=== PATIENT | female | born 1960 ===

== ENCOUNTER 2022-08-26 06:35 | Day surgery (SDC) | payer BC ==
[2022-08-26] MEDS: Ringers Lactate 1,000 ML IV ONE (07:30)
[2022-08-26] MEDS ORDERED: LIDOCAINE 1% MPF 5 ML VIAL ONE (07:52)
[2022-08-26] MEDS ORDERED: propofoL 200 MG/20 ML VIAL IV ONE (07:52)
[2022-08-26] MEDS ORDERED: ONDANSETRON 4 MG/2 ML VIAL ONE (08:19)
--- NOTE | 2022-08-26 08:31 | ENDO RPT ---
[address], [address] COLONOSCOPY PROCEDURE REPORT EXAM DATE: 08/26/2022 PATIENT NAME: Brissa Brock MR #: [id number] BIRTHDATE: 1960 ATTENDING: Jimmy Duff DR STATUS: outpatient [facility] DEVELOPER: Amanda Cardenas RN and Joe Lewis [facility] INDICATIONS: The patient is a 61 yr old Female here for a colonoscopy due to History of colon polyp requiring partial colectomy and colon cancer screening PROCEDURE PERFORMED: Colonoscopy with biopsy - cold polypectomy MEDICATIONS: Per Anesthesia. ESTIMATED BLOOD LOSS: None CONSENT: The patient understands the risks and benefits of the procedure and understands that these risks include, but are not limited to: sedation, allergic reaction, infection, perforation and/or bleeding. Alternative means of evaluation and treatment include, among others: physical exam, x-rays, and/or surgical intervention. The patient elects to proceed with this endoscopic procedure. DESCRIPTION OF PROCEDURE: During intra-op preparation period all mechanical medical equipment was checked for proper function. Hand hygiene and appropriate measures for infection prevention was taken. Procedure, possible complications, alternatives including, but not limited to possibility of bleeding, perforation, tear, infection, sepsis, need for surgery, need for blood transfusion, were explained to the patient. After the risks, benefits and alternatives of the procedure were thoroughly explained, Informed consent was verified, confirmed and timeout was successfully executed by the treatment team. The patient was placed in the left lateral position. A digital rectal exam was performed and revealed external hemorrhoids and A digital rectal exam was performed and revealed internal hemorrhoids. After appropriate level of anesthesia, the scope was passed. The EC-[id number] ([id number]) endoscope was introduced through the anus and advanced to the cecum, which was identified by both the appendix and ileocecal valve. The quality of the prep was fair. The instrument was then slowly withdrawn as the colon was fully examined. Scope withdrawal time was 9 minutes. COLON FINDINGS: Mild diverticulosis was noted in the sigmoid colon. No bleeding was noted from the diverticulosis. A smooth sessile polyp ranging between 3-5mm in size was found in the rectum. A polypectomy was performed with cold forceps. The resection was complete, the polyp tissue was completely retrieved and sent to histology. There was evidence of a prior end-to-side colo-colonic surgical anastomosis in the rectosigmoid colon. Retroflexed views revealed no abnormalities. The scope was then completely withdrawn from the patient and the procedure terminated. ADVERSE EVENTS: There were no complications. IMPRESSIONS: 1. Mild diverticulosis was noted in the sigmoid colon 2. Sessile polyp ranging between 3-5mm in size was found in the rectum; polypectomy was performed with cold forceps 3. There was evidence of a prior colo-colonic surgical anastomosis in the rectosigmoid colon 4. Hemorrhoidal tag 5. External hemorrhoids 6. Internal hemorrhoids RECOMMENDATIONS: 1. avoid NSAIDS for 2 weeks 2. await biopsy results 3. fiber rich diet 4. follow-up: office 2 week(s) 5. Monitor for any evidence of rectal bleeding. 6. yearly hemoccult starting in 4 years 7. yearly hemoquant 8. hemorrhoidal hygiene 9. increase dietary water RECALL: for Colonoscopy, pending biopsy results. Jimmy Duff DR eSigned: Jimmy Duff DR 08/26/2022 8:31 AM cc: CPT CODES: ICD9 CODES: PATIENT NAME: Brissa Brock MR#: [id number]
[2022-08-26 08:35] VITALS: O2SAT 100
[2022-08-26 08:41] VITALS: TEMP 97
[2022-08-26 08:57] VITALS: BP 136/68
--- NOTE | 2022-08-31 14:04 | EKG ---
Test Date: 2022-08-26 Test Time: 06:53:14 Lumber Scaler: FABIANA MEASUREMENT RESULTS: Intervals: Rate: 77 IA: 156 QRSD: 80 QT: 388 QTc: 439 [place]: P: 80 IA: 156 QRS: 42 T: 64 INTERPRETIVE STATEMENTS: Normal sinus rhythm Normal ECG No previous ECG available for comparison Electronically Signed On 08-31-22 14:01:11 MARKING MACHINE TENDER by Mario Stark
== END 2022-08-26 09:08 | disposition home or self-care (01) ==
LOC: OR 06:35
PROVIDERS: ATTEND Surgery
PROC: 0DBP8ZX Excision of Rectum, Via Natural or Artificial Opening Endoscopic, Diagnostic (ICD-10-PCS; principal; 2022-08-26 08:00)
DX: Z12.11 Encounter for screening for malignant neoplasm of colon (principal); Z86.010 Personal history of colon polyps; K63.5 Polyp of colon; K57.30 Diverticulosis of large intestine without perforation or abscess without bleeding; K64.4 Residual hemorrhoidal skin tags; K64.8 Other hemorrhoids
CPT/HCPCS: 88305; 45380; J2704; J2001; J7120; J2405; 93005